=== PATIENT | female | born 1985 | race Caucasian/White ===

== ENCOUNTER 2022-01-05 12:06 | Emergency (ER) | payer MEDICAID ==
[2022-01-05] MEDS ORDERED: Sodium Chloride 0.9% 1000 ML 1,000 ML IV STA (13:06)
[2022-01-05] MEDS ORDERED: Zofran 4 MG/2 ML VIAL IV ONE ×2 (13:06→15:27)
[2022-01-05] MEDS ORDERED: Sodium Chloride 0.9% 1000 ML 1,000 ML ONE ×2 (13:23→16:21)
[2022-01-05] MEDS ORDERED: Zofran 4 MG/2 ML VIAL ONE ×2 (13:23→15:28)
[2022-01-05 13:36] LABS: Absolute Neutrophil Ct (ANC) 10.54 x10^3/uL (1.4-6.9); Basophil (Absolute #) 0.01 x10^3/uL (0-0.4); Eosinophil (Absolute #) 0 x10^3/uL (0-0.5); Hematocrit 38.3 % (35-47); Hemoglobin 12.9 g/dL (12.0-16.0); Lymphocyte (Absolute #) 0.89 x10^3/uL (1.0-4.6); Lymphocytes % 7.5 % (24.0-44.0); Mean Cell Volume 96.2 fL (78-100); Mean Corpuscular Hemoglobin 32.4 pg (26-32); Mean Corpuscular Hgb Concent. 33.7 g/dL (32-36); Mean Platelet Volume 9.7 fL (7.5-11.0); Monocytes % 3.4 % (0.0-12.0); Neutrophil % 88.7 % (36.0-66.0); Platelet Count 175 x10^3/uL (150-450); Red Blood Count 3.98 x10^6/uL (4.1-5.4); Red Cell Distribution Width 11.9 % (11.5-14.0); White Blood Count 11.9 x10^3/uL (4.0-10.5)
[2022-01-05 13:37] LABS: Appearance CLEAR (CLEAR); Bilirubin NEGATIVE (NEGATIVE); Glucose NEGATIVE (NEGATIVE); Ketones NEGATIVE (NEGATIVE); Protein,Urine Dip NEGATIVE (Negative); RBC NEGATIVE Ery/ul (0-5); Specific Gravity 1.025 (1.005-1.025); Urobilinogen 0.2 mg/dL (0-1)
[2022-01-05 13:38] LABS: Dipstick done @ ? MAIN LAB; Nitrite NEGATIVE (NEGATIVE)
[2022-01-05 13:40] LABS: Epithelial Cells RARE /HPF (FEW); Mucus SLIGHT /HPF (NEGATIVE); Urine Cultured Indicated? NO
--- NOTE | 2022-01-05 13:50 | ERPHSYRPT ---
- History of Present Illness Time Seen by Provider: 01/05/22 12:36 Historian: patient Exam Limitations: no limitations Patient Subjective Stated Complaint: pt co pain upper abd pain under right breast since yesterday, hurts worse with a deep breath, some nausea Triage Nursing Assessment: pt alert, resp easy, skin w/d/p, face mask in place, abd soft, no edema noted Physician History: 36 years old presented in the ER with chief complaint of right upper quadrant pain since yesterday, moderate intensity, dull aching to sharp with radiation to lower right chest and epigastric area with associated nausea and dry heaving without vomiting. Does report having history of pleurisy with right lower chest pain but this seems a little different than usual. Timing/Duration: yesterday, constant, gradual onset, worse Activities at Onset: rest Quality: sharpness Abdominal Pain Onset Location: RUQ Pain Radiation: epigastric Severity of Pain-Max: moderate Severity of Pain-Current: moderate Modifying Factors: Worsens With: coughing, movement, palpation, position Associated Symptoms: nausea Previous symptoms: no prior history Allergies/Adverse Reactions: divalproex sodium [From Depakote] Allergy (Verified 01/05/22 12:20) Home Medications: No Reportable Medications [No Reported Medications] 01/05/22 [History] Hx Tetanus, Diphtheria Vaccination/Date Given: No Hx Influenza Vaccination/Date Given: No Hx Pneumococcal Vaccination/Date Given: No Immunizations Up to Date: Yes Travel Risk - International Travel Have you traveled outside of the country in past 3 weeks: No - Coronavirus Screening Are you exhibiting any of the following symptoms?: No Close contact with a COVID-19 positive Pt in past 14-21 Days: No - Vaccine Status Have you recieved a Covid-19 vaccination: Yes 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[email or web address] - Vaccination Dates Date of 2cond Vaccination (if applicable): 2020 - Review of Systems Constitutional: No Symptoms Eyes: No Symptoms Ears, Nose, & Throat: No Symptoms Respiratory: No Symptoms Cardiac: No Symptoms Abdominal/Gastrointestinal: Abdominal Pain, Nausea Genitourinary Symptoms: No Symptoms Musculoskeletal: No Symptoms Skin: No Symptoms Neurological: No Symptoms Psychological: No Symptoms Endocrine: No Symptoms Hematologic/Lymphatic: No Symptoms Immunological/Allergic: No Symptoms - Past Medical History Pertinent Past Medical History: No - Past Surgical History Past Surgical History: Yes Musculoskeletal: Orthopedic Surgery Other Surgical History: knee ,vein stippping, foot surg - Social History Smoking Status: Never smoker Exposure to second hand smoke: No Drug Use: none Patient Lives Alone: No - Female History Hx Last Menstrual Period: week ago Hx Now: (UNKN) - Nursing Vital Signs Nursing Vital Signs: Initial Vital Signs Temperature 97.6 F 01/05/22 12:14 Pulse Rate 95 H 01/05/22 12:14 Respiratory Rate 18 01/05/22 12:14 Blood Pressure 118/90 01/05/22 12:14 O2 Sat by Pulse Oximetry 97 01/05/22 12:14 Pain Scale Pain Intensity 4 - Physical Exam General Appearance: no apparent distress, alert Eye Exam: PERRL/EOMI, eyes nml inspection Ears, Nose, Throat Exam: normal ENT inspection, TMs normal, pharynx normal, moist mucous membranes Neck Exam: normal inspection, non-tender, supple, full range of motion Respiratory Exam: normal breath sounds, lungs clear Cardiovascular Exam: regular rate/rhythm, normal heart sounds Gastrointestinal/Abdomen Exam: soft, normal bowel sounds, tenderness, guarding Back Exam: normal inspection Extremity Exam: normal inspection, normal range of motion Neurologic Exam: alert, oriented x 3, cooperative Skin Exam: normal color SpO2 Interpretation: normal SpO2: 97 O2 Delivery: Room Air Ordered Tests: Active Orders 24 hr Category Date Time Status IV Insertion STAT Care 01/05/22 13:06 Completed NPO (ED) STAT Care 01/05/22 13:06 Completed ABDOMEN AND PELVIS W/0 CONTRAS [CT] Stat Exams 01/05/22 13:06 Completed CBC W DIFF Stat Lab 01/05/22 13:34 Completed CMP Stat Lab 01/05/22 13:34 Completed HCG,QUALITATIVE URINE Stat Lab 01/05/22 13:19 Completed LIPASE Stat Lab 01/05/22 13:34 Completed TROPONIN Q3H Lab 01/05/22 13:34 Completed UA W/RFX CULTURE Stat Lab 01/05/22 13:19 Completed Medication Summary Discontinued Medications Generic Name Dose Route Start Last Admin Trade Name Freq PRN Reason Stop Dose Admin Sodium Chloride 1,000 mls @ 999 mls/hr 01/05/22 13:06 01/05/22 15:00 Sodium Chloride 0.9% 1000 Ml IV 01/05/22 14:06 Infused .Q1H1M STA Infusion Sodium Chloride Confirm 01/05/22 13:23 Sodium Chloride 0.9% 1000 Ml Administered 01/05/22 13:24 Dose 1,000 mls @ ud .ROUTE .STK-MED ONE Piperacillin Sod/Tazobactam 100 mls @ 200 mls/hr 01/05/22 16:09 01/05/22 16:26 Sod 3.375 gm/ Sodium Chloride IV 01/05/22 16:38 200 mls/hr STAT ONE Administration Sodium Chloride 1,000 mls @ 125 mls/hr 01/05/22 16:15 01/05/22 16:24 Sodium Chloride 0.9% 1000 Ml IV 02/04/22 16:14 125 mls/hr .Q8H URMILA Administration Sodium Chloride Confirm 01/05/22 16:21 Sodium Chloride 100ml Mini-Bag Plus Administered 01/05/22 16:22 Dose 100 mls @ ud IV .STK-MED ONE Sodium Chloride Confirm 01/05/22 16:21 Sodium Chloride 0.9% 1000 Ml Administered 01/05/22 16:22 Dose 1,000 mls @ ud .ROUTE .STK-MED ONE Morphine Sulfate 4 mg 01/05/22 15:17 01/05/22 15:33 Morphine Sulfate 4 Mg/Ml Injection IV 01/05/22 15:18 4 mg STAT ONE Administration Morphine Sulfate Confirm 01/05/22 15:28 Morphine Sulfate 4 Mg/Ml Injection Administered 01/05/22 15:29 Dose 4 mg .ROUTE .STK-MED ONE Ondansetron HCl 4 mg 01/05/22 13:06 01/05/22 13:25 Ondansetron Hcl 4 Mg/2 Ml Vial IV 01/05/22 13:07 4 mg STAT ONE Administration Ondansetron HCl Confirm 01/05/22 13:23 Ondansetron Hcl 4 Mg/2 Ml Vial Administered 01/05/22 13:24 Dose 4 mg .ROUTE .STK-MED ONE Ondansetron HCl 4 mg 01/05/22 15:27 01/05/22 15:32 Ondansetron Hcl 4 Mg/2 Ml Vial IV 01/05/22 15:28 4 mg STAT ONE Administration Ondansetron HCl Confirm 01/05/22 15:28 Ondansetron Hcl 4 Mg/2 Ml Vial Administered 01/05/22 15:29 Dose 4 mg .ROUTE .STK-MED ONE Piperacillin Sod/Tazobactam Sod Confirm 01/05/22 16:20 Piperacillin/Tazobactam Sodium 3.375 Gm Vial Administered 01/05/22 16:21 Dose 3.375 gm IV .STK-MED ONE Lab/Rad Data: Laboratory Result Diagrams 01/05/22 13:34 01/05/22 13:34 Laboratory Results 01/05/22 01/05/22 01/05/22 Range/Units 13:34 13:34 13:34 WBC 11.9 H (4.0-10.5) x10^3/uL RBC 3.98 L (4.1-5.4) x10^6/uL Hgb 12.9 (12.0-16.0) g/dL Hct 38.3 (35-47) % MCV 96.2 (78-100) fL MCH 32.4 H (26-32) pg MCHC 33.7 (32-36) g/dL RDW 11.9 (11.5-14.0) % Plt Count 175 (150-450) x10^3/uL MPV 9.7 (7.5-11.0) fL Gran % 88.7 H (36.0-66.0) % Immature Gran % (Auto) 0.3 (0.00-0.4) % Nucleat RBC Rel Count 0.0 (0.00-0.1) % Eos # (Auto) 0 (0-0.5) x10^3/uL Immature Gran # (Auto) 0.03 (0.00-0.03) x10^3u/L Absolute Lymphs (auto) 0.89 L (1.0-4.6) x10^3/uL Absolute Monos (auto) 0.40 (0.0-1.3) x10^3/uL Absolute Nucleated RBC 0.00 (0.00-0.01) x10^3u/L Lymphocytes % 7.5 L (24.0-44.0) % Monocytes % 3.4 (0.0-12.0) % Eosinophils % 0.0 (0.00-5.0) % Basophils % 0.1 (0.0-0.4) % Absolute Granulocytes 10.54 H (1.4-6.9) x10^3/uL Basophils # 0.01 (0-0.4) x10^3/uL Sodium 134 L (137-145) mmol/L Potassium 4.1 (3.5-5.1) mmol/L Chloride 98 (98-107) mmol/L Carbon Dioxide 27 (22-30) mmol/L Anion Gap 12.5 (5-15) MEQ/L BUN 8 (7-17) mg/dL Creatinine 0.52 (0.52-1.04) mg/dL Estimated GFR > 60.0 ML/MIN Glucose 119 H (74-106) mg/dL Calcium 9.3 (8.4-10.2) mg/dL Total Bilirubin 0.50 (0.2-1.3) mg/dL AST 27 (14-36) U/L ALT 21 (0-35) U/L Alkaline Phosphatase 127 H (38-126) U/L Troponin I < 0.012 (0.000-0.034) ng/mL Serum Total Protein 7.1 (6.3-8.2) g/dL Albumin 4.1 (3.5-5.0) g/dL Lipase 97 (23-300) U/L Urinalys Dipstick Clnc Urine Color (YELLOW) Urine Appearance (CLEAR) Urine pH (5-6) Ur Specific [place] (1.005-1.025) POC Urine Protein Conf (Negative) Urine Ketones (NEGATIVE) Urine Nitrite (NEGATIVE) Urine Bilirubin (NEGATIVE) Urine Urobilinogen (0-1) mg/dL Urine Leukocytes (NEGATIVE) Urine WBC (Auto) (0-5) /HPF Urine RBC (Auto) (0-2) /HPF U Epithel Cells (Auto) (FEW) /HPF Urine Bacteria (Auto) (NEGATIVE) /HPF Urine RBC (0-5) Tre/ul Urine Mucus (Auto) (NEGATIVE) /HPF Ur Culture Indicated? Urine Glucose (NEGATIVE) mg/dL Urine HCG, Qual (Negative) 01/05/22 01/05/22 Range/Units 13:19 13:19 WBC (4.0-10.5) x10^3/uL RBC (4.1-5.4) x10^6/uL Hgb (12.0-16.0) g/dL Hct (35-47) % MCV (78-100) fL MCH (26-32) pg MCHC (32-36) g/dL RDW (11.5-14.0) % Plt Count (150-450) x10^3/uL MPV (7.5-11.0) fL Gran % (36.0-66.0) % Immature Gran % (Auto) (0.00-0.4) % Nucleat RBC Rel Count (0.00-0.1) % Eos # (Auto) (0-0.5) x10^3/uL Immature Gran # (Auto) (0.00-0.03) x10^3u/L Absolute Lymphs (auto) (1.0-4.6) x10^3/uL Absolute Monos (auto) (0.0-1.3) x10^3/uL Absolute Nucleated RBC (0.00-0.01) x10^3u/L Lymphocytes % (24.0-44.0) % Monocytes % (0.0-12.0) % Eosinophils % (0.00-5.0) % Basophils % (0.0-0.4) % Absolute Granulocytes (1.4-6.9) x10^3/uL Basophils # (0-0.4) x10^3/uL Sodium (137-145) mmol/L Potassium (3.5-5.1) mmol/L Chloride (98-107) mmol/L Carbon Dioxide (22-30) mmol/L Anion Gap (5-15) MEQ/L BUN (7-17) mg/dL Creatinine (0.52-1.04) mg/dL Estimated GFR ML/MIN Glucose (74-106) mg/dL Calcium (8.4-10.2) mg/dL Total Bilirubin (0.2-1.3) mg/dL AST (14-36) U/L ALT (0-35) U/L Alkaline Phosphatase (38-126) U/L Troponin I (0.000-0.034) ng/mL Serum Total Protein (6.3-8.2) g/dL Albumin (3.5-5.0) g/dL Lipase (23-300) U/L Urinalys Dipstick Clnc MAIN LAB Urine Color YELLOW (YELLOW) Urine Appearance CLEAR (CLEAR) Urine pH 7.0 (5-6) Ur Specific [place] 1.025 (1.005-1.025) POC Urine Protein Conf NEGATIVE (Negative) Urine Ketones NEGATIVE (NEGATIVE) Urine Nitrite NEGATIVE (NEGATIVE) Urine Bilirubin NEGATIVE (NEGATIVE) Urine Urobilinogen 0.2 (0-1) mg/dL Urine Leukocytes NEGATIVE (NEGATIVE) Urine WBC (Auto) NONE (0-5) /HPF Urine RBC (Auto) NONE (0-2) /HPF U Epithel Cells (Auto) RARE (FEW) /HPF Urine Bacteria (Auto) NONE (NEGATIVE) /HPF Urine RBC NEGATIVE (0-5) Tre/ul Urine Mucus (Auto) SLIGHT (NEGATIVE) /HPF Ur Culture Indicated? NO Urine Glucose NEGATIVE (NEGATIVE) mg/dL Urine HCG, Qual NEGATIVE (Negative) - Progress Progress: improved, pain not gone completely, re-examined Progress Note: 01/05/22 16:13 36 years old is evaluated for right upper quadrant pain with nausea. She is given fluids and symptomatic treatment, on reevaluation feeling better but still have pain. Has a white count of 11, unremarkable chemistries including liver enzymes. Obtained CT abdomen pelvis without contrast which showed cholelithiasis with gallbladder wall thickening suggesting acute cholecystitis. Given a dose of antibiotics. Discussed with Dr. Howell, reviewed history, work- up, recommended transfer to [facility] for cholecystectomy. Plan discussed with patient who understand and agrees with it. 01/05/22 discussed with hospitalist , reviewed history, work-up and patient is excepted for transfer In consultation with general surgery Discussed with : Other Counseled pt/family regarding: lab results, diagnosis, need for follow-up, rad results - Departure Departure Disposition: Transfer Clinical Impression: Acute cholecystitis Condition: Stable Critical Care Time: No Referrals: DOCTOR,NO FAMILY [Primary Care Provider] - Follow up/PCP as directed
[2022-01-05 13:58] LABS: ALBUMIN 4.1 g/dL (3.5-5.0); ALKALINE PHOSPHATASE 127 U/L (38-126); ANION GAP 12.5 MEQ/L (5-15); BLOOD UREA NITROGEN 8 mg/dL (7-17); CHLORIDE 98 mmol/L (98-107); Calcium 9.3 mg/dL (8.4-10.2); Carbon Dioxide 27 mmol/L (22-30); Creatinine 1 0.52 mg/dL (0.52-1.04); EST GLOMERULAR FILTRATION RATE > 60.0 ML/MIN; Glucose 119 mg/dL (74-106); LIPASE 97 U/L (23-300); Potassium 4.1 mmol/L (3.5-5.1); SGOT/AST 27 U/L (14-36); SGPT/ALT 21 U/L (0-35); SODIUM 134 mmol/L (137-145); Total Protein 7.1 g/dL (6.3-8.2)
[2022-01-05] MEDS ORDERED: MORPHINE SULFATE 4 MG INJ IV ONE (15:17)
[2022-01-05] MEDS ORDERED: MORPHINE SULFATE 4 MG INJ ONE (15:28)
[2022-01-05] MEDS ORDERED: PIPERACILLIN/TAZOBACTAM 3.375 GM in Sodium Chloride 100ML MINI-BAG PLUS 100 ML IV ONE (16:09)
[2022-01-05] MEDS ORDERED: Sodium Chloride 0.9% 1000 ML 1,000 ML IV SCH (16:15)
[2022-01-05] MEDS ORDERED: PIPERACILLIN/TAZOBACTAM IV ONE (16:20)
[2022-01-05] MEDS ORDERED: Sodium Chloride 100ML MINI-BAG PLUS 100 ML IV ONE (16:21)
[2022-01-05 18:13] VITALS: BP 111/71; PULSE 91
--- NOTE | 2022-01-05 20:18 | XRAY ---
Indication: Right upper quadrant pain. Nausea. Multiple contiguous axial images obtained through the abdomen and pelvis without contrast. Comparison: None Lung bases clear. Heart not enlarged. Noncontrasted stomach and bowel loops appear nonobstructed. Normal appendix. Mild diffuse scattered colonic fecal debris throughout. No free fluid/air. Gallbladder is moderately distended with a few gallstones, largest 11 mm. No biliary distention. Remaining liver, pancreas, spleen, adrenal glands, kidneys, ureters, bladder, uterus, and aorta are unremarkable for noncontrast exam. Osseous structures intact. No ventral or inguinal hernias. Impression: 1. Distended gallbladder with gallstones better evaluated with sonogram. 2. Mild diffuse fecal stasis. Comment: Preliminary interpretation made by [facility]. No critical discrepancy.
[2022-01-05 22:10] VITALS: O2SAT 97
== END 2022-01-05 18:58 | disposition short-term general hospital (02) ==
LOC: ED 12:06
DX: K80.00 Calculus of gallbladder with acute cholecystitis without obstruction (principal); R10.11 Right upper quadrant pain; R11.0 Nausea
CPT/HCPCS: 36000; 36415; 74176; 80053; 81015; 83690; 84484; 84703; 85025; 96360; 96374; 96375; 96376; 99285; J2270; J2405

== ENCOUNTER 2022-08-25 23:45 | Emergency (ER) | payer MEDICAID, OTHER ==
--- NOTE | 2022-08-26 00:22 | ERPHSYRPT ---
- History of Present Illness Time Seen by Provider: 08/26/22 00:17 Source: patient, family Exam Limitations: no limitations Patient Subjective Stated Complaint: pt states "I started having a cough 2 days ago. I think I was running a fever but I don't have a thermometer at home. I have been getting in coughing fits to where I vomit." Triage Nursing Assessment: pt ambulatory to bed by self, alert and oriented x3 but slow to answer questions, pt c/o cough x2 days, pt has been coughing more today and getting in coughing fits to wear she "vomits" per patient, lung sounds clear and equal throughtout, pt afebrile Physician History: pt is having cough the last 2 days but got so bad tonight she vomited gagging on coughing' No chest or abd pain. not short of breath chest is clear. ht is tachy but regular and no M. Abd nontender with out mass or peritoneal signs. no prior asthma or resp conditions. Ordered CXR CBC and RSV, COvid, Strep and Flu swabs ( all negative swabs) reviewed and discussed with pt and advised followup based on these. discussed with pt and she would like to continue Ab and steroids as prescriptions after discussion of risks and benefits and also tesselon for symptoms. Timing/Duration: yesterday Cough Quality/Degree: moderate Possible Cause: no prior episodes Modifying Factors: Improves With: nothing Associated Symptoms: cough, other (vomiting) Allergies/Adverse Reactions: divalproex sodium [From Depakote] Allergy (Verified 08/25/22 23:57) ibuprofen [From Motrin] Allergy (Verified 08/25/22 23:57) Home Medications: Atorvastatin Calcium [Lipitor] 10 mg PO DAILY 08/26/22 [History] Doxepin HCl 150 mg PO DAILY 08/26/22 [History] Gabapentin 300 mg PO TID 08/26/22 [History] Zolpidem Tartrate 10 mg [Ambien 10 MG] 10 mg PO DAILY 08/26/22 [History] methocarbamoL [Methocarbamol] 500 mg PO DAILY 08/26/22 [History] Hx Tetanus, Diphtheria Vaccination/Date Given: Yes Hx Influenza Vaccination/Date Given: No Hx Pneumococcal Vaccination/Date Given: No Travel Risk - International Travel Have you traveled outside of the country in past 3 weeks: No - Coronavirus Screening Are you exhibiting any of the following symptoms?: Yes Symptoms: Cough: New Onset Close contact with a COVID-19 positive Pt in past 14-21 Days: No - Vaccine Status Have you recieved a Covid-19 vaccination: Yes 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[employer] - Vaccination Dates Date of 2cond Vaccination (if applicable): 2020 - Review of Systems Constitutional: No Fever, No Chills Eyes: No Symptoms Ears, Nose, & Throat: No Symptoms Respiratory: Cough, No Dyspnea Cardiac: No Chest Pain, No Edema, No Syncope Abdominal/Gastrointestinal: Vomiting, No Abdominal Pain, No Nausea, No Diarrhea Genitourinary Symptoms: No Dysuria Musculoskeletal: No Back Pain, No Neck Pain Skin: No Rash Neurological: No Dizziness, No Focal Weakness, No Sensory Changes Psychological: No Symptoms Endocrine: No Symptoms Hematologic/Lymphatic: No Symptoms Immunological/Allergic: No Symptoms All Other Systems: Reviewed and Negative - Past Medical History Pertinent Past Medical History: Yes Neurological History: Migraines ENT History: No Pertinent History Cardiac History: High Cholesterol Respiratory History: No Pertinent History Endocrine Medical History: No Pertinent History Musculoskeletal History: No Pertinent History GI Medical History: Gallbladder Disease History: No Pertinent History Psycho-Social History: No Pertinent History Female Reproductive Disorders: No Pertinent History - Past Surgical History Past Surgical History: Yes Neuro Surgical History: No Pertinent History Cardiac: No Pertinent History Respiratory: No Pertinent History Gastrointestinal: Cholecystectomy Genitourinary: No Pertinent History Musculoskeletal: Orthopedic Surgery Female Surgical History: No Pertinent History Other Surgical History: knee ,vein strippping, foot surg - Social History Smoking Status: Never smoker Exposure to second hand smoke: Yes Drug Use: none Patient Lives Alone: No - Female History Hx Last Menstrual Period: 08/12/22 Hx Now: No - Nursing Vital Signs Nursing Vital Signs: Initial Vital Signs Temperature 97.4 F 08/25/22 23:58 Pulse Rate 107 H 08/25/22 23:58 Respiratory Rate 18 08/25/22 23:58 Blood Pressure 121/76 08/25/22 23:58 O2 Sat by Pulse Oximetry 99 08/25/22 23:58 Pain Scale Pain Intensity 0 - Physical Exam General Appearance: no apparent distress, alert Eye Exam: PERRL/EOMI, eyes nml inspection Ears, Nose, Throat Exam: normal ENT inspection, TMs normal, pharynx normal, moist mucous membranes Neck Exam: normal inspection, non-tender, supple, full range of motion Respiratory Exam: normal breath sounds, lungs clear, No respiratory distress Cardiovascular Exam: regular rate/rhythm, normal heart sounds Gastrointestinal/Abdomen Exam: soft, No tenderness, No mass Pelvic Exam: deferred Rectal Exam: deferred Back Exam: normal inspection, No CVA tenderness, No vertebral tenderness Extremity Exam: normal inspection, normal range of motion Neurologic Exam: alert, oriented x 3, cooperative, normal mood/affect, sensation nml, No motor deficits Skin Exam: normal color, warm, dry, No rash Lymphatic Exam: No adenopathy SpO2 Interpretation: normal SpO2: 99 O2 Delivery: Room Air - Course Nursing assessment & vital signs reviewed: Yes - Radiology Exams Chest X-ray Interpretation: Reviewed by me, Other (no major infiltrates.) Ordered Tests: Active Orders 24 hr Category Date Time Status IV Insertion STAT Care 08/26/22 00:24 Active CHEST 2 VIEWS (PA AND LAT) Stat Exams 08/26/22 00:25 Taken CBC W DIFF Stat Lab 08/26/22 00:53 Completed Respiratory Therapy Assessment DAILY RT 08/26/22 00:33 Active Medication Summary Generic Name Dose Route Start Last Admin Trade Name Freq PRN Reason Stop Dose Admin Chlorphenir/Hydrocodone Polistirex 5 ml 08/26/22 01:46 08/26/22 01:47 Hydrocodone/Chlorphen P-Stirex 1 Ml Shanita.Er.12h PO 09/25/22 01:45 5 ml [id number] PRN Administration COUGH Discontinued Medications Generic Name Dose Route Start Last Admin Trade Name Freq PRN Reason Stop Dose Admin Albuterol/Ipratropium 3 ml 08/26/22 00:27 Ipratropium/Albuterol Sulfate 3 Ml Ampul.Neb IH 08/26/22 00:28 STAT ONE Albuterol/Ipratropium Confirm 08/26/22 00:36 Ipratropium/Albuterol Sulfate 3 Ml Ampul.Neb Administered 08/26/22 00:37 Dose 3 ml IH .STK-MED ONE Benzonatate 100 mg 08/26/22 00:29 08/26/22 00:50 Benzonatate 100 Mg Capsule PO 08/26/22 00:30 100 mg STAT ONE Administration Benzonatate Confirm 08/26/22 00:41 Benzonatate 100 Mg Capsule Administered 08/26/22 00:42 Dose 100 mg PO .STK-MED ONE Chlorphenir/Hydrocodone Polistirex 15 ml 08/26/22 01:08 08/26/22 01:47 Hydrocodone/Chlorphen P-Stirex 1 Ml Shanita.Er.12h PO 08/26/22 01:09 Not Given STAT ONE Methylprednisolone Sodium 0 mg 08/26/22 00:27 08/26/22 00:50 Succinate 125 mg/ Sterile IV 08/26/22 00:28 125 mg Water 2 ml STAT ONE Administration Sodium Chloride 1,000 mls @ 999 mls/hr 08/26/22 00:24 08/26/22 00:51 Sodium Chloride 0.9% 1000 Ml IV 08/26/22 01:24 999 mls/hr .Q1H1M STA Administration Ceftriaxone Sodium/Dextrose 1 g in 50 mls @ 100 mls/hr 08/26/22 00:26 08/26/22 01:35 Rocephin 1 Gm-D5w 50 Ml Bag IV 08/26/22 00:55 Infused STAT STA Infusion Sodium Chloride Confirm 08/26/22 00:42 Sodium Chloride 0.9% 1000 Ml Administered 08/26/22 00:43 Dose 1,000 mls @ ud .ROUTE .STK-MED ONE Ceftriaxone Sodium/Dextrose Confirm 08/26/22 00:42 Rocephin 1 Gm-D5w 50 Ml Bag Administered 08/26/22 00:43 Dose 1 g in 50 mls @ ud IV .STK-MED ONE Methylprednisolone Sodium Succinate Confirm 08/26/22 00:42 Methylprednis Sod Succ 125 Mg/2 Ml Vial Administered 08/26/22 00:43 Dose 125 mg .ROUTE .STK-MED ONE Ondansetron HCl 4 mg 08/26/22 00:24 08/26/22 00:50 Ondansetron Hcl 4 Mg/2 Ml Vial IV 08/26/22 00:25 4 mg STAT ONE Administration Ondansetron HCl Confirm 08/26/22 00:42 Ondansetron Hcl 4 Mg/2 Ml Vial Administered 08/26/22 00:43 Dose 4 mg .ROUTE .STK-MED ONE Sterile Water Confirm 08/26/22 00:42 Water For Injection,Sterile 10 Ml Vial Administered 08/26/22 00:43 Dose 10 ml IJ .STK-MED ONE Lab/Rad Data: Laboratory Result Diagrams 08/26/22 00:53 Laboratory Results 08/26/22 08/26/22 08/26/22 Range/Units 00:53 00:53 00:53 WBC 9.3 (4.0-10.5) x10^3/uL RBC 3.95 L (4.1-5.4) x10^6/uL Hgb 12.1 (12.0-16.0) g/dL Hct 38.1 (35-47) % MCV 96.5 (78-100) fL MCH 30.6 (26-32) pg MCHC 31.8 L (32-36) g/dL RDW 12.4 (11.5-14.0) % Plt Count 185 (150-450) x10^3/uL MPV 10.0 (7.5-11.0) fL Gran % 67.3 H (36.0-66.0) % Immature Gran % (Auto) 0.3 (0.00-0.4) % Nucleat RBC Rel Count 0.0 (0.00-0.1) % Eos # (Auto) 0.02 (0-0.5) x10^3/uL Immature Gran # (Auto) 0.03 (0.00-0.03) x10^3u/L Absolute Lymphs (auto) 2.49 (1.0-4.6) x10^3/uL Absolute Monos (auto) 0.48 (0.0-1.3) x10^3/uL Absolute Nucleated RBC 0.00 (0.00-0.01) x10^3u/L Lymphocytes % 26.9 (24.0-44.0) % Monocytes % 5.2 (0.0-12.0) % Eosinophils % 0.2 (0.00-5.0) % Basophils % 0.1 (0.0-0.4) % Absolute Granulocytes 6.23 (1.4-6.9) x10^3/uL Basophils # 0.01 (0-0.4) x10^3/uL Influenza Type A Ag NEGATIVE (NEGATIVE) Influenza Type B Ag NEGATIVE (NEGATIVE) RSV (PCR) NEGATIVE (Negative) SARS-CoV-2 (PCR) NEGATIVE (NEGATIVE) Group A Strep Antibody NOT DETECTED (NEGATIVE) - Progress Progress: improved, re-examined Air Movement: good Blood Culture(s) Obtained: No Antibiotics given: No Counseled pt/family regarding: lab results, diagnosis, need for follow-up, rad results - Departure Departure Disposition: Home Clinical Impression: bronchitis/sinusitis, Pharyngitis Condition: Good Critical Care Time: No Referrals: DOCTOR,NO FAMILY [Primary Care Provider] - Follow up/PCP as directed Instructions: Cough, Adult (DC), Bronchitis, Adult ED, Sore Throat, Adult (DC) Additional Instructions: we will provide prescriptions to help control the cough, for inflammation, and for infection . followup with your Dr. return meantime if short of breath, vomiting persists, trouble swallowing or any other concerns. Prescriptions: Azithromycin [Azithromycin 250 mg Pack] 250 mg PO UD #6 tablet Benzonatate 100 mg PO TID PRN PRN #14 cap PRN Reason: Cough Methylprednisolone Packet [Medrol Dosepack] 4 mg PO UD #30 packet
[2022-08-26] MEDS ORDERED: Sodium Chloride 0.9% 1000 ML 1,000 ML IV STA (00:24)
[2022-08-26] MEDS ORDERED: Zofran 4 MG/2 ML VIAL IV ONE (00:24)
[2022-08-26] MEDS ORDERED: ROCEPHIN 1 Gm-D5w 50 ml Bag** 1 G/50 ML IVPB IV STA (00:26)
[2022-08-26] MEDS ORDERED: DUONEB 0.5-3 MG/3 ml Neb IH ONE ×2 (00:27→00:36)
[2022-08-26] MEDS ORDERED: solu-MEDROL 125 MG, Sterile H2O 10 ml 2 ML IV ONE ×2 (00:27)
[2022-08-26] MEDS ORDERED: Tessalon Perles 100 MG PO ONE ×2 (00:29→00:41)
[2022-08-26] MEDS ORDERED: solu-MEDROL ONE (00:42)
[2022-08-26] MEDS ORDERED: Zofran 4 MG/2 ML VIAL ONE (00:42)
[2022-08-26] MEDS ORDERED: Sodium Chloride 0.9% 1000 ML 1,000 ML ONE (00:42)
[2022-08-26] MEDS ORDERED: Sterile H2O 10 ml IJ ONE (00:42)
[2022-08-26] MEDS ORDERED: ROCEPHIN 1 Gm-D5w 50 ml Bag** 1 G/50 ML IVPB IV ONE (00:42)
[2022-08-26 00:56] LABS: Absolute Neutrophil Ct (ANC) 6.23 x10^3/uL (1.4-6.9); Basophil (Absolute #) 0.01 x10^3/uL (0-0.4); Eosinophil % 0.2 % (0.00-5.0); Eosinophil (Absolute #) 0.02 x10^3/uL (0-0.5); Hematocrit 38.1 % (35-47); Hemoglobin 12.1 g/dL (12.0-16.0); Lymphocyte (Absolute #) 2.49 x10^3/uL (1.0-4.6); Lymphocytes % 26.9 % (24.0-44.0); Mean Cell Volume 96.5 fL (78-100); Mean Corpuscular Hemoglobin 30.6 pg (26-32); Mean Corpuscular Hgb Concent. 31.8 g/dL (32-36); Monocyte (Absolute #) 0.48 x10^3/uL (0.0-1.3); Monocytes % 5.2 % (0.0-12.0); Neutrophil % 67.3 % (36.0-66.0); Platelet Count 185 x10^3/uL (150-450); Red Blood Count 3.95 x10^6/uL (4.1-5.4); Red Cell Distribution Width 12.4 % (11.5-14.0); White Blood Count 9.3 x10^3/uL (4.0-10.5)
[2022-08-26] MEDS ORDERED: HYDROCODONE-CHLORPHEN ER SUSP PO ONE (01:08)
[2022-08-26 01:36] LABS: INFLUENZA A NEGATIVE (NEGATIVE); INFLUENZA B NEGATIVE (NEGATIVE); RESPIRATORY SYNCTIAL VIRUS NEGATIVE (Negative); SARS-CoV-2 Xpert Express NEGATIVE (NEGATIVE)
[2022-08-26] MEDS ORDERED: HYDROCODONE-CHLORPHEN ER SUSP PO PRN (01:46)
[2022-08-26 01:50] VITALS: O2SAT 99
[2022-08-26 02:10] VITALS: BP 105/70; PULSE 91
--- NOTE | 2022-08-26 08:46 | XRAY ---
Indication: Cough. Pneumonia. Comparison: None PA/lateral chest demonstrates normal heart and lungs with incidental tiny hilar calcified nodes. Bony thorax intact with minimal dextroscoliosis.
== END 2022-08-26 02:17 | disposition home or self-care (01) ==
LOC: ED 23:45
DX: J40 Bronchitis, not specified as acute or chronic (principal); J32.9 Chronic sinusitis, unspecified; J02.9 Acute pharyngitis, unspecified; R05.1 Acute cough; E78.5 Hyperlipidemia, unspecified; Z79.899 Other long term (current) drug therapy; Z79.52 Long term (current) use of systemic steroids
CPT/HCPCS: 0241U; 36000; 36415; 71046; 85025; 87651; 96360; 96365; 96374; 99284; J0696; J2405; J2930; A9270-GY